=== PATIENT | male | born 1955 | race Caucasian/White ===

== ENCOUNTER 2021-12-17 15:39 | Emergency (ER) | payer OTHER ==
[~2021-12-17] VITALS: Ht 180.3 cm; Wt 80.3 kg
== END 2021-12-17 18:45 | disposition home or self-care (01) ==
LOC: ED 15:39
DX: S99.821A Other specified injuries of right foot, initial encounter (principal); X50.1XXA Overexertion from prolonged static or awkward postures, initial encounter; Y93.01 Activity, walking, marching and hiking; Y92.69 Other specified industrial and construction area as the place of occurrence of the external cause; Y99.9 Unspecified external cause status

== ENCOUNTER 2022-04-11 11:27 | Emergency (ER) | payer MEDICARE ==
[2022-04-11] MEDS ORDERED: VALTREX1000 MG PO (22:08)
== END 2022-04-11 12:13 | disposition left against medical advice (07) ==
LOC: ED 11:27
DX: Z53.21 Procedure and treatment not carried out due to patient leaving prior to being seen by health care provider (principal)

== ENCOUNTER 2022-04-11 20:55 | Emergency (ER) | payer MEDICARE ==
[~2022-04-11] VITALS: Ht 180.3 cm; Wt 79.4 kg
[2022-04-11] MEDS ORDERED: VALTREX1000 MG PO (22:08)
== END 2022-04-11 22:12 | disposition home or self-care (01) ==
LOC: ED 20:55
DX: B02.9 Zoster without complications (principal); Z91.040 Latex allergy status

== ENCOUNTER → 2022-10-12 | Outpatient (CLI) | payer MEDICARE ==
[~2022-10-12] MED LIST: VALTREX1000 MG PO
== END | disposition home or self-care (01) ==
LOC: LAB 12:16
PROVIDERS: ATTEND Nurse Practitioner Family
DX: T14.8XXA Other injury of unspecified body region, initial encounter (principal); M25.50 Pain in unspecified joint; W57.XXXA Bitten or stung by nonvenomous insect and other nonvenomous arthropods, initial encounter; Y93.89 Activity, other specified; Y92.89 Other specified places as the place of occurrence of the external cause; Y99.8 Other external cause status

== ENCOUNTER 2022-10-29 13:01 | Inpatient (IN) | payer MEDICARE ==
[~2022-10-29] VITALS: Ht 180.3 cm; Wt 74.8 kg
[2022-10-29 13:09] VITALS: BP 143/89
[2022-10-29] MEDS ORDERED: VIBRAMYCIN100 MG PO (13:09)
[2022-10-29 13:51] LABS: BASO % 0.4 % (0.0-1.0); EOS # 0.2 10*3/uL (0.0-0.4); EOS % 3.1 % (1.0-4.0); HEMATOCRIT 43.5 % (42.0-52.0); LYMPH # 1.2 10*3/uL (1.3-4.4); LYMPH % 17.2 % (27.0-41.0); MEAN CELL VOLUME 88.6 fl (80.0-94.0); MEAN CORPUSCULAR HGB 31.2 pg (27.0-31.0); MEAN CORPUSCULAR HGB CONC 35.2 g/dl (33.0-37.0); MEAN PLATELET VOLUME 9.7 fl (9.6-12.3); MONO # 0.7 10*3/uL (0.1-1.0); MONO % 10.7 % (3.0-9.0); NEUT # 4.7 10*3/uL (2.3-7.9); NEUT % 68.3 % (47.0-73.0); PLATELET COUNT AUTOMATED 241 10*3/uL (130-400); RED BLOOD COUNT 4.91 10*6/uL (4.50-5.90); RED CELL DISTRI WIDTH 13.2 % (0-14.5); WHITE BLOOD COUNT 6.9 10*3/uL (4.8-10.8)
[2022-10-29 14:17] LABS: ALKALINE PHOSPHATASE 128 U/L (46-116); BUN 21 mg/dl (9-23); CHLORIDE 102 mmol/L (98-107); SGPT/ALT 17 U/L (10-49); TOTAL PROTEIN 8.2 gm/dL (6.0-8.0)
[2022-10-29 15:18] LABS: BILIRUBIN Negative (Negative); BLOOD Negative (Negative); CLARITY Clear (Clear); COLOR Yellow (Yellow); GLUCOSE Negative (Negative); KETONE Trace (Negative); LEUKO ESTERASE Negative (Negative); NITRITE Negative (Negative); SPECIFIC GRAVITY 1.025 (1.001-1.030); UROBILINOGEN 0.2 E.U./dl (0.0-1.0)
[2022-10-29 15:41] LABS: BACTERIA 1+; CALCIUM OXALATE CRYSTALS 1+; MUCOUS 1+; RBC 0-2 rbc/hpf (0-2); WBC 0-2 wbc/hpf (0-5)
[2022-10-29 18:20] VITALS: BP 156/93
[2022-10-29 20:00] VITALS: BP 157/86
[2022-10-30] VITALS: BP 152/79
[2022-10-30 08:00] VITALS: BP 115/77
[2022-10-30 10:19] LABS: BASO % 0.5 % (0.0-1.0); EOS # 0.1 10*3/uL (0.0-0.4); EOS % 1.8 % (1.0-4.0); HEMATOCRIT 41.6 % (42.0-52.0); LYMPH % 15.3 % (27.0-41.0); MEAN CELL VOLUME 89.5 fl (80.0-94.0); MEAN CORPUSCULAR HGB CONC 34.6 g/dl (33.0-37.0); MEAN PLATELET VOLUME 9.6 fl (9.6-12.3); MONO # 0.5 10*3/uL (0.1-1.0); MONO % 8.1 % (3.0-9.0); NEUT # 4.8 10*3/uL (2.3-7.9); NEUT % 74.1 % (47.0-73.0); PLATELET COUNT AUTOMATED 228 10*3/uL (130-400); RED BLOOD COUNT 4.65 10*6/uL (4.50-5.90); RED CELL DISTRI WIDTH 13.3 % (0-14.5); WHITE BLOOD COUNT 6.5 10*3/uL (4.8-10.8)
[2022-10-30 11:06] LABS: VITAMIN D, 25-HYDROXY 51.6 ng/mL (30-100)
[2022-10-30 11:07] LABS: ALKALINE PHOSPHATASE 113 U/L (46-116); BUN 15 mg/dl (9-23); CHLORIDE 102 mmol/L (98-107); CHOLESTEROL 151 mg/dL (<200); FREE T4 1.08 ng/dl (0.89-1.76); LDL CHOLESTEROL 101 mg/dL (9-159); POTASSIUM 3.9 mmol/L (3.4-5.1); SGPT/ALT 18 U/L (10-49); TOTAL PROTEIN 7.8 gm/dL (6.0-8.0); TRIGLYCERIDES 124 mg/dl (<150)
[2022-10-30 12:00] VITALS: BP 120/75
[2022-10-30] MEDS ORDERED: VIBRAMYCIN HYC100 MG PO (14:53)
== END 2022-10-30 15:20 | disposition home or self-care (01) | DRG 868 ==
LOC: ED 13:01 → EDHOLD 16:20 → 5E 16:20
PROVIDERS: Internal Medicine Infectious Disease; Physician Assistant; Student in an Organized Health Care Education/Training Program; ADMIT Internal Medicine; ATTEND Internal Medicine
DX: A69.20 Lyme disease, unspecified (principal); E87.1 Hypo-osmolality and hyponatremia; R73.9 Hyperglycemia, unspecified; R70.0 Elevated erythrocyte sedimentation rate; R74.8 Abnormal levels of other serum enzymes; Z82.3 Family history of stroke; Z79.2 Long term (current) use of antibiotics

== ENCOUNTER → 2022-11-28 | Outpatient (CLI) | payer MEDICARE ==
[~2022-11-28] MED LIST changes: +VIBRAMYCIN HYC100 MG PO; +VIBRAMYCIN100 MG PO
[2022-11-28 14:26] LABS: BASO % 0.3 % (0.0-1.0); EOS # 0.1 10*3/uL (0.0-0.4); EOS % 0.8 % (1.0-4.0); HEMATOCRIT 38.1 % (42.0-52.0); LYMPH # 0.7 10*3/uL (1.3-4.4); LYMPH % 8.7 % (27.0-41.0); MEAN CELL VOLUME 89.9 fl (80.0-94.0); MEAN CORPUSCULAR HGB 30.7 pg (27.0-31.0); MEAN CORPUSCULAR HGB CONC 34.1 g/dl (33.0-37.0); MEAN PLATELET VOLUME 9.3 fl (9.6-12.3); MONO # 0.8 10*3/uL (0.1-1.0); MONO % 10.4 % (3.0-9.0); NEUT # 5.9 10*3/uL (2.3-7.9); NEUT % 79.3 % (47.0-73.0); PLATELET COUNT AUTOMATED 296 10*3/uL (130-400); RED BLOOD COUNT 4.24 10*6/uL (4.50-5.90); RED CELL DISTRI WIDTH 13.2 % (0-14.5); WHITE BLOOD COUNT 7.5 10*3/uL (4.8-10.8)
[2022-11-28 14:31] LABS: BILIRUBIN Negative (Negative); BLOOD Negative (Negative); CLARITY Clear (Clear); COLOR Yellow (Yellow); GLUCOSE Negative (Negative); KETONE Negative (Negative); LEUKO ESTERASE Negative (Negative); NITRITE Negative (Negative); PH 5.5 (4.5-8.0)
[2022-11-28 14:39] LABS: MUCOUS 2+
[2022-11-28 14:50] LABS: ALKALINE PHOSPHATASE 132 U/L (46-116); BUN 12 mg/dl (9-23); CHLORIDE 101 mmol/L (98-107); CHOLESTEROL 133 mg/dL (<200); LDL CHOLESTEROL 87 mg/dL (9-159); LIPASE 30 U/L (12-53); POTASSIUM 4.5 mmol/L (3.4-5.1); SGPT/ALT 20 U/L (10-49); TOTAL PROTEIN 7.9 gm/dL (6.0-8.0); TRIGLYCERIDES 111 mg/dl (<150)
[2022-11-29 10:07] LABS: LYME INTERPRETATION Lyme Abs Unconfirmed (.)
[2022-11-29 14:08] LABS: ANTI-DSDNA ANTIBODIES 1 IU/mL (0-9); ANTI-RNP ANTIBODIES <0.2 AI (0.0-0.9); ANTICHROMATIN ANTIBODIES <0.2 AI (0.0-0.9); ANTISCLERODERMA-70 AB <0.2 AI (0.0-0.9); SJOGREN ANTI-SS-A <0.2 AI (0.0-0.9); SJOREN AB, ANTI-SS-B <0.2 AI (0.0-0.9)
[2022-12-02 01:06] LABS: IGG P18 AB Present (.); IGG P23 AB Absent (.); IGG P28 AB Present (.); IGG P30 AB Present (.); IGG P39 AB Present (.); IGG P41 AB Present (.); IGG P45 AB Absent (.); IGG P58 AB Present (.); IGG P63 AB Absent (.); IGG P66 AB Absent (.); IGM P23 AB Present (.); IGM P39 AB Absent (.); IGM P41 AB Absent (.); LYME IGG WB INTERPRETATION Positive (.); LYME IGM WB INTERPRETATION Negative (.)
== END | disposition home or self-care (01) ==
LOC: LAB 13:56
PROVIDERS: ATTEND Nurse Practitioner Family
DX: Z13.6 Encounter for screening for cardiovascular disorders (principal); Z13.1 Encounter for screening for diabetes mellitus; R10.9 Unspecified abdominal pain; M25.50 Pain in unspecified joint; R53.83 Other fatigue; W57.XXXA Bitten or stung by nonvenomous insect and other nonvenomous arthropods, initial encounter; Y93.89 Activity, other specified; Y92.89 Other specified places as the place of occurrence of the external cause; Y99.8 Other external cause status

== ENCOUNTER → 2022-12-28 | Outpatient (CLI) | payer MEDICARE ==
[2022-12-28 18:38] LABS: BUN 22 mg/dl (9-23); CHLORIDE 92 mmol/L (98-107); POTASSIUM 4.6 mmol/L (3.4-5.1)
== END | disposition home or self-care (01) ==
LOC: LAB 10:57
PROVIDERS: ATTEND Internal Medicine
DX: E87.1 Hypo-osmolality and hyponatremia (principal); R53.83 Other fatigue